=== PATIENT | female | born 1955 | race Caucasian/White ===

== ENCOUNTER → 2016-10-24 | Outpatient (CLI) | payer OTHER ==
[~2016-10-24] MED LIST: ADVAIR 250/501 DISK IH; ALEVE220 M2 PO; ASPIR-LOW81 MG PO; B COMPLETE1 EACH PO; CRESTOR10 MG PO; DESYREL100 MG PO; FLONASE16 G1 BOTH NARES; HUMALOG100 UNIT/1 SC; HUMALOG100 UNIT/2 SC; LANTUS 10100 UNITS/ SC; METFORMIN HCL1000 MG PO; NICOTINE PATCH1 EAC2 TD; PRILOSEC40 MG PO; PROAIR HFA8.5 GM IH; SINGULAIR10 MG PO; SYNTHROID200 MCG PO; TRULICITY0.75 MG/0. SC; VITAMIN C1000 MG PO; ZOLOFT100 MG PO
== END | disposition home or self-care (01) ==
LOC: RAD 12:18
DX: R10.31 Right lower quadrant pain (principal)
CPT/HCPCS: 74177

== ENCOUNTER → 2017-05-15 | Outpatient (CLI) | payer MEDICARE, OTHER | END | disposition home or self-care (01) | LOC: CDC 09:31 | DX: Z01.810 Encounter for preprocedural cardiovascular examination (principal); H25.11 Age-related nuclear cataract, right eye; I45.10 Unspecified right bundle-branch block; R94.31 Abnormal electrocardiogram [ECG] [EKG] | CPT/HCPCS: 93000 ==